=== PATIENT | female | born 1975 | race Caucasian/White ===

== ENCOUNTER 2016-04-12 11:05 | Day surgery (SDC) | payer OTHER ==
[~2016-04-12] VITALS: Ht 175.3 cm; Wt 90.7 kg
[~2016-04-12 11:05] MED LIST: MOTRIN800 MG PO; OSTEO BI-FLEX1 EAC3 PO; PERCOCET 5/31 TABLET PO
[2016-04-12 11:44] VITALS: BP 118/77
[2016-04-12 15:40] VITALS: BP 103/68
== END 2016-04-12 17:15 | disposition home or self-care (01) ==
LOC: SDC 11:05
PROC: 0QBN0ZZ Excision of Right Metatarsal, Open Approach (ICD-10-PCS; principal; 2016-04-12)
DX: M20.11 Hallux valgus (acquired), right foot (principal); G89.29 Other chronic pain; M79.671 Pain in right foot; Z87.891 Personal history of nicotine dependence; Z83.3 Family history of diabetes mellitus; Z83.2 Family history of diseases of the blood and blood-forming organs and certain disorders involving the immune mechanism; Z83.511 Family history of glaucoma; Z80.1 Family history of malignant neoplasm of trachea, bronchus and lung; Z88.1 Allergy status to other antibiotic agents; Z88.6 Allergy status to analgesic agent; Z88.5 Allergy status to narcotic agent; Z91.030 Bee allergy status
CPT/HCPCS: J1100; J2250; J2405; J3010; S0020

== ENCOUNTER 2017-10-27 10:33 | Day surgery (SDC) | payer OTHER ==
[~2017-10-27] VITALS: Ht 172.7 cm; Wt 90.3 kg
[~2017-10-27 10:33] MED LIST changes: +EPIPEN ADU0.3 MG/0.3 IM; +MELOXICAM15 MG PO; +THRIVITE RX TA1 EACH PO
== END 2017-10-27 12:45 | disposition home or self-care (01) ==
LOC: PAIN 10:33 → SDC 11:15 → PAIN 12:45
PROC: 3E0S33Z Introduction of Anti-inflammatory into Epidural Space, Percutaneous Approach (ICD-10-PCS; principal; 2017-10-27)
PROC: B01B1ZZ Fluoroscopy of Spinal Cord using Low Osmolar Contrast (ICD-10-PCS; principal; 2017-10-27)
DX: M54.16 Radiculopathy, lumbar region (principal); M51.26 Other intervertebral disc displacement, lumbar region; M99.83 Other biomechanical lesions of lumbar region; Z87.891 Personal history of nicotine dependence; Z88.1 Allergy status to other antibiotic agents; Z88.5 Allergy status to narcotic agent; Z88.6 Allergy status to analgesic agent; Z88.8 Allergy status to other drugs, medicaments and biological substances; Z91.030 Bee allergy status
CPT/HCPCS: J1100